=== PATIENT | male | born 1970 | race African-American/Black ===

== ENCOUNTER 2024-04-17 12:13 | Inpatient (IN) | payer OTHER ==
[~2024-04-17] VITALS: Ht 185.4 cm; Wt 66.2 kg
[2024-04-17] MEDS: IV NS 0.9% 1,000 ML BAG IV ONE ×2 (12:57→14:50)
[2024-04-17 13:07] LABS: SITE, VBG VBG - N/A; VBG BASE EXCESS -14.8 mmol/L (-2.0-3.0); VBG HCO3 10.4 mmol/L (22.0-29.0); VBG MetHb 0.3 % (0.5-1.5); VBG O2Hb 65.2 % (0-79); VBG OXYGEN SATURATION 65.4 % (60.0-85.0); VBG PCO2 24.2 mmHg (38.0-54.0); VBG PO2 32.7 mmHg (23.0-48.0); VBG TOTAL HEMOGLOBIN 15.9 G/dL (13.5-17.5)
[2024-04-17 13:18] LABS: CALCIUM, SERUM 10.1 mg/dL (8.5-10.1); CARBON DIOXIDE 12 mmol/L (21-32); CHLORIDE 93 mmol/L (98-107); CREATININE 1.5 mg/dL (0.6-1.3); GLUCOSE 309 mg/dL (74-106); SODIUM SERUM 129 mmol/L (136-145); UREA NITROGEN, BLOOD 21 mg/dL (7-18)
[2024-04-17 13:24] LABS: ALANINE AMINOTRANSFERASE 18 U/L (12-78); ALKALINE PHOSPHATASE 110 U/L (46-116); ASPARTATE AMINOTRANSFERASE 15 U/L (15-37); BILIRUBIN,DIRECT 0.2 mg/dL (0.0-0.2); BILIRUBIN,TOTAL 0.7 mg/dL (0.2-1.0); LIPASE 27 U/L (16-77); TOTAL PROTEIN, SERUM 8.9 g/dL (6.4-8.2)
[2024-04-17 13:27] LABS: BASOPHILS % (AUTO) 0.2 % (0.0-2.0); HEMATOCRIT 44 % (39-51); HEMOGLOBIN 14.6 g/dL (13.5-17.5); LYMPHOCYTES # (AUTO) 0.9 K/uL (0.8-4.8); LYMPHOCYTES % (AUTO) 5.4 % (20.0-44.0); MEAN CORPUSCULAR HEMOGLOBIN 31 PG (26.0-33.0); MEAN CORPUSCULAR HGB CONC 33 g/dl (31.0-36.0); MEAN CORPUSCULAR VOLUME 93 fL (80-96); MONOCYTES # (AUTO) 1.3 K/uL (0.1-1.30); MONOCYTES % (AUTO) 7.7 % (2.0-12.0); NEUTROPHILS % (AUTO) 86.7 % (43.0-81.0); PLATELET COUNT (AUTO) 248 K/uL (150-450); RED BLOOD CELL COUNT(AUTO) 4.74 MIL/uL (4.5-6.0); WHITE BLOOD COUNT (AUTO) 17.2 K/uL (4.3-11.0)
[2024-04-17] MEDS ORDERED: METF-442 PO (13:28)
[2024-04-17 13:33] LABS: ALBUMIN 2.8 g/dL (3.4-5.0)
[2024-04-17] MEDS ORDERED: INSULIN REGULAR, HUMAN 100 UNITS in IV NS 0.9% 100 ML IV PRN (14:00)
[2024-04-17 14:08] LABS: ANISOCYTOSIS 1+; BAND % (MANUAL) 1 % (0.0-5.0); LYMPHOCYTES % (MANUAL) 4 % (16-48); MONOCYTES % (MANUAL) 8 % (0-11.0); NEUTROPHILS % (MANUAL) 87 (42-76); PLATELET ESTIMATE ADEQUATE
[2024-04-17] MEDS: PIPERACILLIN /TAZOBACTAM 3.375 G in IV D5W 50 ML IV ONE (14:30)
[2024-04-17] MEDS: VANCOMYCIN 1 GM in IV D5W 250 ML IV ONE (15:00)
[2024-04-17 15:12] LABS: APPEARANCE,URINE CLEAR (CLEAR); BILIRUBIN,URINE 1+ (NEGATIVE); BLOOD, URINE 2+ Ery/uL (NEGATIVE); COLOR,URINE YELLOW (YELLOW); KETONES,URINE 3+ mg/dL (NEGATIVE); LEUKOCYTE ESTERASE ,URINE NEGATIVE (NEGATIVE); NITRITE, URINE NEGATIVE (NEGATIVE); PH,URINE 5.5 (5.0-8.0); PROTEIN,URINE 2+ mg/dl (NEGATIVE); UGLUCOSE 2+ mg/dL (NEGATIVE); UROBILINOGEN,URINE 0.2 EU/dL (0.2)
[2024-04-17] MEDS: AZITHROMYCIN 500 MG in IV D5W 250 ML IV ONE (15:30)
[2024-04-17 15:43] LABS: ADD URINE CULTURE NO; BACTERIA,URINE None seen /HPF (None Seen); HYALINE CASTS, URINE Few /LPF (None Seen); MUCUS,URINE Few /LPF (None Seen); RBC,URINE 21-50 /HPF (0-2); SQUAMOUS EPITHELIAL CELL,UR 0-2 /HPF (None Seen); WBC,URINE 0-2 /HPF (0-3)
[2024-04-17] MEDS: INSULIN REGULAR, HUMAN 100 UNITS in IV NS 0.9% 99 ML IV PRN (15:45)
[2024-04-17] MEDS ORDERED: TEMAZEPAM 15 MG CAPSULE PO PRN (16:00)
[2024-04-17] MEDS ORDERED: ONDANSETRON HCL/PF 4 MG/2 ML VIAL IVP PRN (16:00)
[2024-04-17] MEDS ORDERED: MAGNESIUM HYDROXIDE 30 ML UDC PO PRN (16:00)
[2024-04-17] MEDS ORDERED: INSULIN REGULAR, HUMAN 100 UNIT in IV NS 0.9% 99 ML IV PRN (16:00)
[2024-04-17] MEDS ORDERED: Z GUARD REMEDY 4 OZ OINT TP PRN (16:00)
[2024-04-17] MEDS ORDERED: HYDROCODONE/APAP 5/325MG TABLET PO PRN (16:00)
[2024-04-17 19:45] VITALS: BP 147/98; TEMP 98.4; O2SAT 99
[2024-04-17] MEDS: IV NS 0.9% 1,000 ML IV PRN (19:51)
[2024-04-17 20:00] VITALS: BP 132/87; TEMP 98.4; O2SAT 98
[2024-04-17] MEDS: BLOOD SUGAR DIAGNOSTIC 1 EACH STRIP IN SCH (20:08)
[2024-04-17] MEDS: INSULIN REGULAR, HUMAN 100 UNIT in IV NS 0.9% 99 ML IV PRN (20:10)
[2024-04-17 20:21] LABS: CALCIUM, SERUM 8.6 mg/dL (8.5-10.1); CREATININE 1.4 mg/dL (0.6-1.3); POTASSIUM 4.1 mmol/L (3.5-5.1)
[2024-04-17 21:00] VITALS: BP 113/85; O2SAT 97
[2024-04-17 22:00] VITALS: BP 119/80; O2SAT 96
[2024-04-17] MEDS: IV D5/ 0.9% NACL 1,000 ML IV PRN (22:30)
[2024-04-17] MEDS: PIPERACILLIN /TAZOBACTAM 3.375 G in IV D5W 100 ML IV SCH (22:30)
[2024-04-17] MEDS: PIPERACI/TAZO 3.375GM/D5W 50ML PB IV ONE (22:31)
[2024-04-17 23:00] VITALS: BP 112/73; O2SAT 96
[2024-04-18] VITALS (21 sets, daily range): BP systolic 112–155; BP diastolic 67–92; TEMP 98.2–100.2; O2SAT 94–99
[2024-04-18 00:28] LABS: CALCIUM, SERUM 8.7 mg/dL (8.5-10.1); CREATININE 1.3 mg/dL (0.6-1.3); POTASSIUM 3.8 mmol/L (3.5-5.1)
[2024-04-18] MEDS: ACETAMINOPHEN 325 MG TABLET PO PRN (04:04)
[2024-04-18] MEDS: PIPERACI/TAZO 3.375GM/D5W 50ML PB IV ONE (04:23)
[2024-04-18 05:04] LABS: BASOPHILS % (AUTO) 0.1 % (0.0-2.0); HEMATOCRIT 38 % (39-51); HEMOGLOBIN 12.6 g/dL (13.5-17.5); LYMPHOCYTES % (AUTO) 6.6 % (20.0-44.0); MEAN CORPUSCULAR HEMOGLOBIN 30 PG (26.0-33.0); MEAN CORPUSCULAR HGB CONC 34 g/dl (31.0-36.0); MEAN CORPUSCULAR VOLUME 90 fL (80-96); MONOCYTES # (AUTO) 1.7 K/uL (0.1-1.30); MONOCYTES % (AUTO) 10.9 % (2.0-12.0); NEUTROPHILS # (AUTO) 12.5 K/uL (1.8-8.9); NEUTROPHILS % (AUTO) 82.4 % (43.0-81.0); PLATELET COUNT (AUTO) 288 K/uL (150-450); RED BLOOD CELL COUNT(AUTO) 4.18 MIL/uL (4.5-6.0); RED CELL DISTRIBUTION WIDTH 14.1 % (11.5-15.0); WHITE BLOOD COUNT (AUTO) 15.2 K/uL (4.3-11.0)
[2024-04-18 05:16] LABS: CALCIUM, SERUM 8.6 mg/dL (8.5-10.1); CREATININE 1.2 mg/dL (0.6-1.3); POTASSIUM 3.8 mmol/L (3.5-5.1)
[2024-04-18 05:17] LABS: PHOSPHORUS 0.8 mg/dL (2.5-4.9)
[2024-04-18 05:45] LABS: THYROID STIMULATING HORMONE 0.83 uIU/mL (0.358-3.74)
[2024-04-18] MEDS: PANTOPRAZOLE 40 MG TABLET.DR PO SCH (07:58)
[2024-04-18 11:32] LABS: CALCIUM, SERUM 8.6 mg/dL (8.5-10.1); CREATININE 1.2 mg/dL (0.6-1.3); POTASSIUM 3.4 mmol/L (3.5-5.1)
[2024-04-18] MEDS ORDERED: DEXTROSE 50%-WATER 50 ML DISP.SYRIN IV PRN (13:30)
[2024-04-18] MEDS: INSULIN REGULAR, HUMAN 100 UNIT/ML 3 ML VIAL SQ PRN (14:05)
[2024-04-18] MEDS: BLOOD SUGAR DIAGNOSTIC 1 EACH STRIP IN SCH (14:05)
[2024-04-18] MEDS: AZITHROMYCIN 500 MG in IV D5W 250 ML IV SCH (15:20)
[2024-04-18 16:49] LABS: CALCIUM, SERUM 8.4 mg/dL (8.5-10.1); CREATININE 1.1 mg/dL (0.6-1.3); POTASSIUM 3.9 mmol/L (3.5-5.1)
[2024-04-18] MEDS: METFORMIN 500 MG TABLET PO SCH (16:50)
[2024-04-18 18:24] LABS: CALCIUM, SERUM 8.6 mg/dL (8.5-10.1); CREATININE 1.1 mg/dL (0.6-1.3); POTASSIUM 3.4 mmol/L (3.5-5.1)
[2024-04-18 22:28] LABS: CALCIUM, SERUM 8.5 mg/dL (8.5-10.1); POTASSIUM 3.5 mmol/L (3.5-5.1)
[2024-04-19 07:00] VITALS: BP 117/71; TEMP 98.6; O2SAT 95
[2024-04-19] MEDS ORDERED: DEXTROSE 50%-WATER 50 ML DISP.SYRIN IV PRN (07:00)
[2024-04-19 07:11] LABS: CALCIUM, SERUM 8.7 mg/dL (8.5-10.1); CREATININE 0.9 mg/dL (0.6-1.3); MAGNESIUM 1.8 mg/dL (1.8-2.4); PHOSPHORUS 1.3 mg/dL (2.5-4.9); POTASSIUM 3.5 mmol/L (3.5-5.1)
[2024-04-19 07:35] LABS: THYROID STIMULATING HORMONE 1.21 uIU/mL (0.358-3.74); URIC ACID 2.9 mg/dL (2.6-7.2)
[2024-04-19] MEDS: BLOOD SUGAR DIAGNOSTIC 1 EACH STRIP IN SCH (07:39)
[2024-04-19] MEDS: INSULIN REGULAR, HUMAN 100 UNIT/ML 3 ML VIAL SQ PRN (07:52)
[2024-04-19] MEDS ORDERED: LEVO750T46 PO (10:22)
[2024-04-19] MEDS ORDERED: GLIP5TAB13 PO (10:22)
[2024-04-19] MEDS: LOPERAMIDE HCL (2 MG CAP) 2 MG CAPSULE PO PRN (11:53)
[2024-04-19 16:00] VITALS: BP 130/69; TEMP 99; O2SAT 93
[2024-04-19] MEDS: K PHOS NEUTRAL 250 MG TABLET PO ONE (16:10)
[2024-04-19 20:00] VITALS: BP 117/71; TEMP 98.1; O2SAT 95
[2024-04-19] MEDS: *INSULIN REGULAR(HUMULIN R)HUM 100 UNIT/ML VIAL SQ PRN (21:47)
[2024-04-19] MEDS: INSULIN GLARGINE, 100 UNIT/ML CARTRIDGE SQ SCH (22:09)
[2024-04-20 08:29] VITALS: BP 128/88; TEMP 98.6; O2SAT 97
[2024-04-20 13:52] LABS: CALCIUM, SERUM 8.6 mg/dL (8.5-10.1); POTASSIUM 3.3 mmol/L (3.5-5.1)
[2024-04-20 14:04] LABS: BASOPHILS % (AUTO) 0.1 % (0.0-2.0); HEMATOCRIT 36 % (39-51); HEMOGLOBIN 12.1 g/dL (13.5-17.5); LYMPHOCYTES # (AUTO) 1.4 K/uL (0.8-4.8); LYMPHOCYTES % (AUTO) 13.4 % (20.0-44.0); MEAN CORPUSCULAR HEMOGLOBIN 30 PG (26.0-33.0); MEAN CORPUSCULAR HGB CONC 34 g/dl (31.0-36.0); MEAN CORPUSCULAR VOLUME 89 fL (80-96); MONOCYTES # (AUTO) 1.8 K/uL (0.1-1.30); NEUTROPHILS # (AUTO) 7.4 K/uL (1.8-8.9); NEUTROPHILS % (AUTO) 69.5 % (43.0-81.0); PLATELET COUNT (AUTO) 346 K/uL (150-450); RED BLOOD CELL COUNT(AUTO) 4.01 MIL/uL (4.5-6.0); RED CELL DISTRIBUTION WIDTH 13.7 % (11.5-15.0); WHITE BLOOD COUNT (AUTO) 10.6 K/uL (4.3-11.0)
[2024-04-20 16:34] VITALS: BP 132/82; TEMP 99.7; O2SAT 95
[2024-04-20] MEDS: POTASSIUM CHLORIDE 20 MEQ TAB.PRT.SR PO ONE (19:18)
[2024-04-20 20:00] VITALS: BP 120/67; TEMP 98.2; O2SAT 98
[2024-04-21] VITALS: BP 127/88; TEMP 99.3; O2SAT 93
[2024-04-21] MEDS: MAG HYDROX/AL HYDROX/SIMETH 30 ML UDC PO PRN (06:18)
[2024-04-21 06:45] LABS: CALCIUM, SERUM 8.5 mg/dL (8.5-10.1); CREATININE 0.9 mg/dL (0.6-1.3); POTASSIUM 3.1 mmol/L (3.5-5.1)
[2024-04-21 08:30] VITALS: BP 119/75; TEMP 98.4; O2SAT 97
[2024-04-21] MEDS: POTASSIUM CHLORIDE 20 MEQ TAB.PRT.SR PO SCH (12:01)
[2024-04-21] MEDS ORDERED: LEVO750T46 PO (13:34)
[2024-04-21 16:00] VITALS: BP 113/75; TEMP 98.2; O2SAT 96
[2024-04-21] MEDS: ACIDOPHILUS/BULGARICUS 1 EACH TAB.CHEW PO SCH (18:33)
[2024-04-21 20:00] VITALS: BP 127/88; TEMP 99.3; O2SAT 93
== END 2024-04-22 09:00 | disposition home or self-care (01) | DRG 420 ==
LOC: ER 12:13 → ICU 19:36 → MED 04-18 19:51
PROVIDERS: ADMIT Nurse Practitioner Acute Care; ATTEND Nurse Practitioner Acute Care
DX: E11.10 Type 2 diabetes mellitus with ketoacidosis without coma (principal); N17.0 Acute kidney failure with tubular necrosis; J15.9 Unspecified bacterial pneumonia; E44.0 Moderate protein-calorie malnutrition; E88.09 Other disorders of plasma-protein metabolism, not elsewhere classified; E86.0 Dehydration; E86.1 Hypovolemia; D64.9 Anemia, unspecified; K21.9 Gastro-esophageal reflux disease without esophagitis; Z59.00 Homelessness unspecified; Z79.84 Long term (current) use of oral hypoglycemic drugs; R53.1 Weakness; D72.829 Elevated white blood cell count, unspecified; M89.8X9 Other specified disorders of bone, unspecified site; E87.1 Hypo-osmolality and hyponatremia; Z68.1 Body mass index [BMI] 19.9 or less, adult
CPT/HCPCS: 36415; 71045-TC; 80048-TC; 80061-TC; 80076-TC; 81001; 82010-TC; 82962-TC; 83690-TC; 83735-TC; 84100-TC; 84443-TC; 84484-TC; 84550-TC; 85025-TC; 87040-TC; 87081-TC; 87086-TC; 97112-TC; 97116-TC; 97530-TC; 98960; A4223; A6403; G0378; J0456; J1815; J2543; J3370; J7030; J7042; J7050; J7060

== ENCOUNTER 2024-04-24 19:10 | Emergency (ER) | payer OTHER ==
[~2024-04-24] VITALS: Ht 185.4 cm; Wt 72.6 kg
[~2024-04-24 19:10] MED LIST: GLIP5TAB13 PO; LEVO750T46 PO; METF-442 PO
[2024-04-24] MEDS: IV NS 0.9% 1,000 ML BAG IV ONE (20:44)
[2024-04-24 21:14] LABS: BASOPHILS % (AUTO) 0.1 % (0.0-2.0); EOSINOPHILS % (AUTO) 0.2 % (0.0-6.0); HEMATOCRIT 35 % (39-51); HEMOGLOBIN 11.8 g/dL (13.5-17.5); LYMPHOCYTES # (AUTO) 1.1 K/uL (0.8-4.8); LYMPHOCYTES % (AUTO) 10.5 % (20.0-44.0); MEAN CORPUSCULAR HEMOGLOBIN 31 PG (26.0-33.0); MEAN CORPUSCULAR HGB CONC 34 g/dl (31.0-36.0); MEAN CORPUSCULAR VOLUME 91 fL (80-96); MONOCYTES # (AUTO) 0.8 K/uL (0.1-1.30); NEUTROPHILS # (AUTO) 8.5 K/uL (1.8-8.9); NEUTROPHILS % (AUTO) 81.2 % (43.0-81.0); PLATELET COUNT (AUTO) 542 K/uL (150-450); RED BLOOD CELL COUNT(AUTO) 3.79 MIL/uL (4.5-6.0); RED CELL DISTRIBUTION WIDTH 13.6 % (11.5-15.0); WHITE BLOOD COUNT (AUTO) 10.5 K/uL (4.3-11.0)
[2024-04-24 21:22] LABS: CARBON DIOXIDE 30 mmol/L (21-32); CHLORIDE 99 mmol/L (98-107); CREATININE 1.5 mg/dL (0.6-1.3); POTASSIUM 4.5 mmol/L (3.5-5.1); SODIUM SERUM 134 mmol/L (136-145); UREA NITROGEN, BLOOD 19 mg/dL (7-18)
[2024-04-24 21:29] LABS: GLUCOSE 405 mg/dL (74-106)
[2024-04-24] MEDS ORDERED: LEVO750T46 PO (22:19)
[2024-04-24] MEDS ORDERED: LEVOFLOXACIN (250MG) 250 MG TABLET ONE (23:02)
[2024-04-24] MEDS: LEVOFLOXACIN (250MG) 250 MG TABLET PO ONE (23:03)
[2024-04-24 23:04] VITALS: BP 114/69; TEMP 98.5; O2SAT 94
== END 2024-04-24 23:05 | disposition home or self-care (01) ==
LOC: ER 19:12
DX: J18.9 Pneumonia, unspecified organism (principal); E11.65 Type 2 diabetes mellitus with hyperglycemia; B34.9 Viral infection, unspecified; D64.9 Anemia, unspecified; E86.0 Dehydration; Z79.84 Long term (current) use of oral hypoglycemic drugs; E87.8 Other disorders of electrolyte and fluid balance, not elsewhere classified
CPT/HCPCS: 36415; 71045-TC; 80048-TC; 84484-TC; 85025-TC